=== PATIENT | female | born 1955 | race Caucasian/White ===

== ENCOUNTER → 2020-06-24 10:53 | Outpatient (CLI) | payer MEDICARE, SELFPAY ==
[2020-06-25 10:46] LABS: COVID19 Sendout Not Detected (Not Detect)
== END ==
PROVIDERS: Visit Provider Physician Assistant
DX: Z11.59 Encounter for screening for other viral diseases (principal)
CPT/HCPCS: 87635

== ENCOUNTER 2020-06-27 08:21 | Day surgery (SDC) | payer MEDICARE, SELFPAY ==
[2020-06-20 09:49] VITALS: BMI 25.7
[2020-06-27] VITALS (13 sets, daily range): BP systolic 85–123; BP diastolic 45–74; PULSE 66–99; RESP 14–20; TEMP 35.8–36.9; O2SAT 97–100; BMI 25.7
--- NOTE | 2020-06-27 | DI.RAD.S_ITS ---
PROCEDURE: XR HIP W PEL IF DONE RT 2V INDICATIONS: ANTERIOR RIGHT HIP TECHNIQUE: 3 intraoperative fluoroscopic images of the hip acquired. COMPARISON: [facility], CR, XR PELVIS 1-2V, 06/27/2020, 13:51. FINDINGS: Bones: Patient is status post right total hip arthroplasty, with hardware components in expected positions. The hip joint appears congruent. The visualized bony structures appear intact. Soft tissues: No suspicious soft tissue densities. IMPRESSION: Postsurgical changes from right total hip arthroplasty. Dictated by: Gordon Fajardo M.D. on 06/27/2020 at 14:53 Approved by: Gordon Fajardo M.D. on 06/27/2020 at 14:57
--- NOTE | 2020-06-27 06:00 | DI.RAD.S_ITS ---
PROCEDURE: XR PELVIS 1-2V INDICATIONS: TOTAL RIGHT HIP TECHNIQUE: 1 view of the lower pelvis acquired. COMPARISON: None. FINDINGS: Bones: Patient is status post new right hip arthroplasty, with hardware components in expected positions. The hip joint appears congruent. The visualized bony structures appear intact. Soft tissues: Overlying postoperative changes are noted. No suspicious soft tissue densities. IMPRESSION: Prior left total hip arthroplasty, new right total hip arthroplasty. Normal alignment established. Dictated by: Dong Banda M.D. on 06/27/2020 at 15:22 Approved by: Dong Banda M.D. on 06/27/2020 at 15:23
[2020-06-27] MEDS: ACETAMINOPHEN 325 MG TABLET 975 MG PO (09:04)
[2020-06-27] MEDS: CELECOXIB 200 MG CAPSULE PO (09:04)
--- NOTE | 2020-06-27 10:41 | PM.PREOP ---
Pre-operative Note COVID-19 COVID-19 status: Negative Result date/Date tested (Pos, Neg/Pending): 06/24/20 Interval Note History & Physical reviewed/Exam performed by Physician: No Changes to H&P: Yes H&P completed within 30 days and has changed as indicated here:: Plan for right anterior total hip arthroplasty. All
--- NOTE | 2020-06-27 10:46 | PC.NURSE ---
Day shift: Pt not on AC unit at this time.
[2020-06-27] MEDS: CEFAZOLIN 2 GM/100 ML FROZ.PIGGY IV ×2 (11:12→19:49)
[2020-06-27] MEDS: TRANEXAMIC ACID 1,000 MG VIAL 1000 MG INJ ×2 (11:41→13:21)
--- NOTE | 2020-06-27 12:01 | SUR.OPER ---
Supine on padded [place] table with bilateral legs secured in padded positioning boots and suspended in positioning spars, operative leg in traction per surgeon. Head on one pillow. Arm on non-operative side secured on padded armboard <90 degrees abduction. Arm on operative side padded and resting across chest then secured with tape over sheet. Padded perineal post in place per surgeon.
[2020-06-27] MEDS: ROPIVACAINE 0.5% PF 5 MG/ML 20ML VIAL 60 ML INJ (12:10)
[2020-06-27] MEDS: KETOROLAC 30 MG/ML VIAL IV (12:11)
[2020-06-27] MEDS: MORPHINE 4 MG/ML INJ INJ (12:11)
[2020-06-27] MEDS: LACTATED RINGERS 1,000 ML 42 ML IV (13:20)
--- NOTE | 2020-06-27 13:33 | PM.OP.1 ---
Operative Date/Time/Diagnoses Date of procedure: 06/27/20 Time of procedure: 13:33 Pre-op diagnosis: right hip osteoarthritis Post-op diagnosis: same Procedure & Clinicians Procedure: right anterior total hip arthroplasty Same procedure as scheduled: Yes Indications: right hip OA resistant to conservative measures Surgeon: Kishore Daly Director Of Community Life: Zaki Moreno Anesthesia Type: General and Spinal Operative Notes Findings: right hip osteoarthritis with large acetabular rim osteophytes superiorly and postero-inferiorly Closure Type: primary Specimen(s): none sent Prosthetic devices, grafts, tissues, transplants, or devices: Hernandez and Nephew 56 mm R3 cup 56 mm x 36 mm neutral polyethylene liner 1x 25mm screw 1x 20mm screw Hernandez and Nephew anthology size 9 high offset stem Bio locks 36+ 0 ceramic head Estimated Blood Loss (mL): 200 Procedure in detail: Patient was met in the preoperative holding area where the site and side of surgery were marked by MD all last minute questions were answered. Patient was then brought back in the operating room she received a spinal anesthetic she was then transferred onto the [place] table and induced under general anesthesia. Bilateral feet were placed in [place] table boots. The right hip was then prepped and draped in normal sterile fashion. A surgical time-out was performed verifying side and site of surgery as well as the name of the patient. A 7 cm long incision was made starting approximately 2 cm distal and 1 cm lateral to the ASIS aiming towards the fibular head. Skin incision was made using 10. Blade electrocautery was used down to subcutaneous layer to the level of the tensor fascia. A new 10. Blade was used to incise the tensor fascia. A Allis clamp was placed on the medial leaflet of the tensor fascia and the tensor muscle was retracted laterally. A Meyerding was then placed over the lateral margin of the rectus femoris and retracted medially. This gave us good exposure to the femoral circumflex vessels which were coagulated using electrocautery. Then placed a Cobra over the superior neck of the femur and a 2nd Cobra retractor over the inferior neck of the femur. I then placed a bent Hohmann over the anterior wall the acetabulum giving us good exposure to the capsule. A inverted T-shaped capsulotomy was performed and the superior and inferior leaflets were tagged with a FiberWire suture. Cobra retractor was then placed intracapsular. This gave us good exposure for femoral neck reciprocating saw was used to make the femoral neck cut based off our pre operative templated films. They show the femur was then externally rotated to 45? and a corkscrew was then used to remove the femoral head. A soft tissue sleeve protector was then placed into the wound and Hohmann retractors were placed over the posterior wall of the acetabulum as well as anterior wall giving us good exposure to the acetabulum and the colloid fossa. Electrocautery was used to remove the pulvinar from the colloid fossa I began reaming with a size 48 mm Reamer. Reamed down to the floor the colloid fossa and then began up sizing by 2s to a size 54 mm Reamer. Periodically stopped and checked the anterior and posterior wall make sure 1 was not being preferentially reamed over the other. At this point fluoroscopy was brought in and was matched to our preoperative standing film for final reaming of the size 55 mm Reamer this had good resistance and 56 mm 3 hole cup was selected. This was placed under fluoroscopic guidance. Two screws were then placed 25 mm screw a 20 mm screw the acetabular cup was then irrigated and a 56 mm x 36 mm neutral polyethylene liner was selected and placed. This is malleted into place and the patient was used to confirmed the tabs were flush with the acetabular rim. A large superior rim osteophyte and a large posterior inferior rim osteophyte were identified and removed with a curved osteotome and rongeur. Femoral elevator hook was then placed underneath the femur the femur was externally rotated to 110? extended to the floor and adducted. The bent Hohmann was placed over the superior aspect of the superior leaflet of the capsulotomy and the capsule was released from the inside shoulder of the greater trochanter giving us exposure to the short external rotators. Short external rotators were teased off the lower lateral margin just enough to give us good exposure the proximal femur. Once this was completed a canal finer was used as find center of the femoral canal followed by a chili pepper broach followed by size 1 broach. We then skipped a sized to size 3 broach and this could sized to size 5 broach and then began up sizing by once again to a 6, 7, 8. I then calcar reamed off the size 8 broach a standard offset trial neck was selected at 36+ 0 head was also selected this was then reduced and fluoroscopy was brought in for leg length leg length looked 1-2 mm long and in addition the stem was in a slight amount of varus and slightly undersized. The offset was also reduced as compared to the contralateral side. The trial components were then removed. I began broaching with a 678 and finally to a 9 broach countersinking by about 1-2 mm. I then calcar reamed off the size 9 broach and selected a size 9 high offset stem. This was malleted into place and a size 36+ 0 by locks head was selected and placed onto the taper and malleted into place. Hip was reduced a final time and brought through range of motion and found to be stable. Final x-rays were then obtained. Local anesthetic was injected into the soft tissues about the hip particularly in the superior and inferior leaflets of the capsule and the tensor. Betadine solution was then allowed to soak into the wound for several minutes this was then thoroughly irrigated with copious normal saline. Ethibond suture was used to close the capsulotomy and the FiberWire sutures were removed. A 1. Vicryl was then used in running locking fashion for the tensor fascia followed by a 1. Vicryl in the fat layer followed by 2 Vicryl in the subcutaneous layer in interrupted fashion followed by a 3 0 strata fix in the subcuticular layer. Dermabond was then placed allowed to dry before placing Aquacel dressing. Complications: none Post-operative Condition: stable Disposition: PACU Plan for aftercare: 24 hoiurs post-op abx, 6 weeks ASA 81 mg BID for DVT prophylaxis, WBAT RLE
--- NOTE | 2020-06-27 14:27 | SUR.PHASEI ---
To room 217 by another RN and [facility] [employer]. Report previously given. Pt doing well, pleasant, appreciative, and relieved to feel so good. Dressing remains CDI, warm blanket given for comfort.
[2020-06-27] MEDS: LACTATED RINGERS 1,000 ML 125 ML IV (15:21)
[2020-06-27] MEDS: ACETAMINOPHEN 325 MG TABLET 650 MG PO ×2 (15:46→20:00)
--- NOTE | 2020-06-27 16:09 | PT-IP ANOTE ---
Pt just arrived to the floor an hour ago. PT checked for evaluation but pt was not yet able to feel or move her feet. Will follow up for PT eval morning of 06/28/20.
[2020-06-27] MEDS: DOCUSATE 100 MG CAPSULE PO (20:00)
[2020-06-27] MEDS: ASPIRIN EC 81 MG TABLET PO (20:00)
[2020-06-27 20:17] LABS: Add Manual Diff / Slide Review NO; Basophils Absolute Auto 0 /uL (0-100); Basophils Percent Auto 0.3 % (0-2); Eosinophils Absolute Auto 0 /uL (0-450); Hematocrit 36.1 % (36-46); Hemoglobin 11.5 g/dL (12.0-16.0); Lymphocytes Absolute Auto 700 /uL (1100-4500); Lymphocytes Percent Auto 5.4 % (25-40); Mean Corpuscular HGB Conc 31.9 % (30-36); Mean Corpuscular Hemoglobin 29.9 PG (26-34); Mean Corpuscular Volume 93.7 fL (80-100); Monocytes Absolute Auto 900 /uL (0-900); Monocytes Percent Auto 6.6 % (3-14); Neutrophils Absolute Auto 12100 /uL (1500-7000); Neutrophils Percent Auto 87.7 % (50-75); Platelet Count 215 X10^3/uL (150-400); Red Blood Cell Count 3.85 X10^6/uL (4.0-5.2); Red Cell Distribution Width 13.8 % (11.6-14.8); White Blood Cell Count 13.7 X10^3/uL (4.5-11.0)
[2020-06-27] MEDS: OXYCODONE IR 5 MG TABLET PO (22:55)
[2020-06-28] VITALS: BP 93/55; PULSE 63; RESP 18; TEMP 36.4; O2SAT 95
[2020-06-28] MEDS: LACTATED RINGERS 1,000 ML 125 ML IV (00:05)
[2020-06-28] MEDS: CEFAZOLIN 2 GM/100 ML FROZ.PIGGY IV (02:32)
[2020-06-28] MEDS: OXYCODONE IR 5 MG TABLET PO ×4 (02:34→13:17)
[2020-06-28 03:15] VITALS: BP 107/56; PULSE 65; RESP 18; TEMP 36.5; O2SAT 100
[2020-06-28] MEDS: LEVOTHYROXINE 50 MCG TABLET PO (05:31)
[2020-06-28 05:38] LABS: Hematocrit 31.4 % (36-46); Hemoglobin 10.1 g/dL (12.0-16.0)
[2020-06-28 07:25] VITALS: BP 163/83; PULSE 67; RESP 16; TEMP 37.2; O2SAT 98
[2020-06-28 07:56] VITALS: PULSE 62; RESP 16; O2SAT 100
--- NOTE | 2020-06-28 07:57 | PM.DS.1 ---
History of Present Illness History of Present Illness Date Patient Seen: 06/28/20 Time Patient Seen: 07:57 Chief complaint: Right Total Hip Arthroplasty/Anterior Approach*OPB Narrative: Admitted yesterday for elective right anterior AYLEEN Discharge Providers Provider Discharge Date: 06/28/20 Primary care physician: Enriqueta Reyes MD Consults: 06/27/20 06:00 Consult to Anesthesiology Routine Comment: Consulting Provider: Anesthesiologist Reason for consultation: Regional block for post operative pain control 06/27/20 14:36 Consult to Discharge Planning Routine Comment: Consult to Physical Therapy Evaluate & Treat Comment: Physician Instructions: post op AYLEEN protocol Consult to Respiratory Therapy Evaluate & Treat Comment: Physician Instructions: Evaluate and treat Discharge provider: Kishore Daly MD Summary Hospital Course Discharge Diagnosis: s/p right anterior AYLEEN Hospital Course: Patient was admitted yesterday for elective right anterior AYLEEN for osteoarthritis. She was kept overnight for 24 hrs post-op abx, pain control, and PT clearance. Status at Discharge Cognitive/behavioral status at discharge: oriented Overall status at discharge: patient is progressing back to baseline Time Spent with Patient Time spent: Less than 30 minutes Exam Vital Signs (past 8 hours): - 06/28/20 00:00 06/28/20 03:15 Temperature 97.6 F 97.7 F Pulse Rate 63 65 Respiratory Rate 18 18 Blood Pressure 93/55 L 107/56 L Pulse Oximetry 95 100 Oxygen Delivery Method Room Air Oxygen Flow Rate 0 Narrative Exam Narrative: NVintact in RLE, dressing c/d/i without strike-through Objective Labs Result Diagrams: 06/28/20 05:25 Labs: Laboratory Results - last 24 hr 06/27/20 06/28/20 20:05 05:25 WBC 13.7 H RBC 3.85 L Hgb 11.5 L 10.1 L Hct 36.1 31.4 L MCV 93.7 MCH 29.9 MCHC 31.9 RDW 13.8 Plt Count 215 Neut % (Auto) 87.7 H Lymph % (Auto) 5.4 L Toombs % (Auto) 6.6 Eos % (Auto) 0.0 L Baso % (Auto) 0.3 Neut # (Auto) 57981 H Lymph # (Auto) 700 L [place]ombs # (Auto) 900 Eos # (Auto) 0 Baso # (Auto) 0 Discharge Assessment & Plan Assessment and Plan Assessment: PAtient is a 64 yo female now POD#1 from elective right anteiror AYLEEN. Anticipate DC home today after clearance by PT Plan of Treatment: - WBAT RLE - ASA 81mg BID for 6 weeks for DVT prophylaxis - Leave dressing in place - post-op exxam 10-14 days Discharge Plan Discharge Plan Patient Disposition: Home Discharge comment: DC when pain controlled and cleared by PT Discharge Med Rec/Prescriptions Prescriptions: New aspirin 81 mg Tablet,Delayed Release (Dr/Ec) 81 mg PO BID Qty: 84 RF: 0 oxycodone 5 mg Tablet 5 mg PO Q3HR PRN (Reason: Pain, Moderate (4-6)) Qty: 60 RF: 0 Continued levothyroxine 50 mcg Tablet 50 mcg PO DAILY RF: 0 magnesium oxide 250 mg magnesium Tablet 250 mg PO DAILY RF: 0 Follow up/Referrals: Kishore Daly MD [Physician] - Discharge Orders: Discharge (Order); Ordered 06/28/20 Ordered By: Kishore Daly Provider Discharge Instructions Diet: Regular Activity: WBAT RLE. OK to shower over the dressing. Do not bathe or soak. Cold/Heat Therapy: ICE surgical site as needed for swelling relief and pain control. Place a towel between skin and ice to prevent garza. Skin/Wound/Dressing Care Dressing: Leave the dressing in place. Visit Report/Discharge Packet Instructions: DI for Hip Replacement Discharge Data Primary Care Provider: Enriqueta Reyes Attending Provider: Kishore Daly
--- NOTE | 2020-06-28 09:20 | PT.IIE ---
Current Diagnoses Unilateral primary osteoarthritis, right hip (06/27/20) Surgery Performed Operation Date: 06/27/20 10:45 Actual Procedures p Total Hip Arthroplasty/Anterior Approach(Right) - Kishore Daly MD Surgical History (Last Updated 06/20/20 @ 10:28 by Melissa Tafoya RN) History of total left hip arthroplasty (Acute 12/2010) Hx of cholecystectomy (Acute 2007) Hx of hernia repair (Acute) Hx of tonsillectomy (Acute 1964) Medical History (Last Updated 06/20/20 @ 10:32 by Melissa Tafoya RN) Anxiety (Acute) Asthma (Acute) Eczema (Acute) Elevated cholesterol (Acute) H. 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) Osteoarthritis (Acute) PTSD (post-traumatic stress disorder) (Acute) SVT (supraventricular tachycardia) (Acute ~2008) Physical Therapy Inpatient Evaluation/Re-Eval M1 PT/OT-IP Prior Functional Status Start: 06/28/20 11:12 Freq: NEEDED Status: Active Protocol: Document 06/28/20 09:20 AB (Rec: 06/28/20 11:22 [email or web address]) Medical Review Prior Functional Status Medical History Reviewed Yes Communication able to make needs known Mobility and Gait pt stated that she is independent with all mobilities and ambulation without AD Social History Household Members none Living Arrangements Apartment/Condo Number of Floors (Floors) One Floor Number of Stairs To Enter/Railing? 2 platform steps to enter Home Environment Standard Height Toilet,Tub/ Shower Home Equipment Front Wheel Walker,Raised Toilet Seat w/Armrests,Shower Seat with Backrest,Hand Held Shower Employment Status Retired Additional Social History Comment pt stated that she has friends that will stay and assist her at home for ~ 1 week and is set up for HHPT since she cannot drive. M2 PT-IP Current Condition Start: 06/28/20 11:12 Freq: NEEDED Status: Active Protocol: Document 06/28/20 09:20 AB (Rec: 06/28/20 11:22 [email or web address]) Physical Therapy Current Condition Current Condition Evaluation Date 06/28/20 Treatment Diagnosis s/p R AYLEEN anterior approach; difficulty in walking Onset Date 06/27/20 Precautions Anterior Hip Precautions No Hip Extension,No Hip External Rotation Weight Bearing Status Weight Bearing Status Weight Bear as Tolerated Allowed Weight Bearing Amount (enter % RLE WBAT or #) (%) M3 PT-IP Subjective Start: 06/28/20 11:12 Freq: NEEDED Status: Active Protocol: Document 06/28/20 09:20 AB (Rec: 06/28/20 11:22 [email or web address]) Subjective Physical Therapy Visit Type Type Initial Evaluation Visit Start Time 09:20 Visit Stop Time 10:03 Total Visit Minutes 43 Number of CLOTH SECONDS SORTER Visits 0 Physical Therapy Visit Comments Patient Comments pt is agreeble to do PT Therapy Pain Assessment Pain When Pain Assessed At Rest Pain Present Pain Present Pain Reported Location Left Hip Intensity 1 Scale Used increases to 3/10 with mobility Description Dull Pain Management Techniques Distraction,Modification of Treatment,Re-positioning, Timing of Activity with Medications M4 PT-IP Mobility and Gait Start: 06/28/20 11:12 Freq: NEEDED Status: Active Protocol: Document 06/28/20 09:20 AB (Rec: 06/28/20 11:22 [email or web address]) PT-Bed Mobility Assessment Supine to Sit Supine to Sit Standby Assistance Sit to Supine Sit to Supine Standby Assistance Scooting Scooting to Edge of Bed Standby Assistance PT-Transfer Assessment Sit to and From Stand Sit to and from Stand Standby Assistance,Use of Upper Extremities Equipment Transfer Assistive Device Gait Belt,Front Wheeled Walker Orthotic/Prosthetic Devices or Brace: No Transfers Transfer Destination Bed,Chair Transfer Technique Stand Step Pivot Transfer Ability Level of Assist Standby Assistance Comments Mobility Comments educated on anterior hip precautions. pt completed sit to stand from chair SBA. educated on sit to stand techniques and repeated sit to stand x 2 reps SBA with steadier transition. completed step transfer to bed using FWW SBA and completed bed mobility SBA. pt ambulated to the toilet using FWW SBA and completed toileting without AD. able to maintain standing by the sink SBA while completing handwashing. completed ambulated towards the stairs SBA using FWW with occasional cues for hip precautions. completed up/ down platform step using FWW SBA. pt ambulated back to her room. requested to go back to bed. positioned in bed. call light and table placed within reach. Gait Assessment Gait Gait Assistance Required: Standby Assistance Distance (Feet) 250 Able to Maintain Weight Bearing Status Yes During Gait Assistive Devices Assistive Device Gait Belt,Front Wheeled Walker Orthotic/Prosthetic Devices or Brace: No Gait Deviations General Gait Pattern Antalgic Factors Limiting Gait Function Factors Limiting Gait Function Decreased Activity Tolerance, Decreased Strength,Pain,Poor Balance Stair Climbing Assessment Evaluation Level of Assist On Stairs Standby Assistance Devices Stair Climbing Assistive Devices Front Wheel Walker Technique/Endurance Stair Climbing Direction Ascend and Descend Stair Climbing Technique Step to Step Number of Steps Climbed 1 Query Text: Stair Climbing Set # Repetitions (reps) 2 PT-Balance Assessment Sitting Balance and Reactions Static Sitting Balance Ability Normal Dynamic Sitting Balance Ability Normal Standing Balance and Reactions Static Standing Balance Ability Good Dynamic Standing Balance Ability Fair Device Used FWW M5 PT-IP Objective Assessments Start: 06/28/20 11:12 Freq: NEEDED Status: Active Protocol: Document 06/28/20 09:20 AB (Rec: 06/28/20 11:22 [email or web address]) Orientation Orientation/Cognition Level of Alertness Alert Orientation Name,Age,Birthday,Month,Date, Year,Day of Week,Place, Situation Language Function Ability No Deficits Noted Safety Awareness Understands Safety Issues Memory Description No Deficits Noted Gross Range of Motion Lower Extremity ROM Assessment Within Functional Limits Strength Lower Extremity Strength Assessment Within Functional Limits Coordination Assessment Gross Coordination Gross Coordination WNL Sensation Assessment Sensation Gross Sensation WNL Muscle Tone Muscle Tone WNL Yes M6 PT-IP Treatment Start: 06/28/20 11:12 Freq: NEEDED Status: Active Protocol: Document 06/28/20 09:20 AB (Rec: 06/28/20 11:22 [email or web address]) Physical Therapy Treatment Education Education Provided Precautions,Weight Bearing Status,Post-Op Packet,Safety M7 PT-IP Assessment and Plan Start: 06/28/20 11:12 Freq: NEEDED Status: Active Protocol: Document 06/28/20 09:20 AB (Rec: 06/28/20 11:22 [email or web address]) PT Summary Assessment and Plan Potential Rehabilitation Potential Excellent Status of Condition at Evaluation Stable Summary Impairments Pain,ROM,Strength,Balance, Cognition,Bed Mobility, Transfers,Gait,Activity Tolerance Assessment Summary pt requiring SBA with mobility and plans to go home today and will have her friends to assist her. pt may go home when medically stable. Goals Bed Mobility Goal Independent Transfer Goal Independent,Front Wheeled Walker Gait Goal Independent,Front Wheel Walker Gait Distance 300 Other Goals up/down 2 platform steps mod I using FWW Days to Meet Goals 3 Frequency of Treatment Frequency Of Treatment Twice a Day Treatment Plan Physical Therapy Treatment Plan Bed Mobility Training,Transfer Training,Gait Training, Therapeutic Exercise,Balance Retraining,Post Op Education, Discharge Planning,Hot or Cold Pack,Neuromuscular Re-ed, Coordination Retraining,Manual Therapy Recommendations To Nursing Amount of Assist Needed Standby Assistance Discharge Recommendations PT Discharge Recommendations Home with Assistance,Home Health,LTAC Transportation Needs at Discharge Private Vehicle
[2020-06-28] MEDS: MAGNESIUM OXIDE 400 MG TABLET 200 MG PO (09:29)
[2020-06-28] MEDS: DOCUSATE 100 MG CAPSULE PO (09:30)
[2020-06-28] MEDS: SODIUM CHLORIDE 0.9% FLUSH 10 ML IV (09:30)
[2020-06-28] MEDS: ASPIRIN EC 81 MG TABLET PO (09:30)
[2020-06-28] MEDS: ACETAMINOPHEN 325 MG TABLET 650 MG PO (09:30)
--- NOTE | 2020-06-28 12:26 | CM.DANOTE ---
Discharge Planning/Care Management CM Discharge Assessment Start: 06/28/20 12:24 Freq: Status: Active Protocol: Document 06/28/20 12:25 ITV (Rec: 06/28/20 12:26 ITV [id number]) Discharge Planning Assessment Advance Directives? Yes Advance Directives on File No History Provided By Medical Record Prior Living Arrangements Apartment/Condo Household Members none Is patient alert and oriented? 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 Pt has a service dog that she will be away from and this is causing her increased anxiety, tearfulness . Patient Information Reviewed Via Phone Assessment Assessment Completed With Patient Comment COVID screen @ 06/24/20 Primary Care Provider Enriqueta Reyes Seen Specialist in Last 12 Months Yes Specialist Seen Orthopedist Primary Language Armenian Loading Unit Operator Crimping Required No Height 172.72 cm Weight 76.657 kg Body Mass Index (BMI) 25.7 Hearing Ability Normal Visual Assist Glasses Dentition Type Teeth, Natural Present,Teeth, Missing Barriers to Learning Emotional Hx Anesthesia Reactions No Hx Family Anesthesia Reaction No Hx Malignant Hyperthermia No Hx Blood Transfusions No Anesthesia Review Requested No alcohol intake former Alcohol Intake Frequency Other: Sober 31 years Smoking Status Former smoker how long ago did patient quit smoking Social light smoker in her 20' s Substance Use Type marijuana Comment Pt advised not to smoke marijuana 24 hours prior to surgery Pain Present Pain Reported Musculoskeletal Symptoms Abnormal Gait,Back Pain, Difficulty Walking,Joint Pain Patient is completely paralyzed or No completely immobile Mental Status Oriented to own ability Is patient on oxygen? No Does patient have YEE/SOB No Hx Sleep Apnea No Currently Taking a Beta Shay No Can You Climb a Flight of Stairs Without Yes SOB Hx Chest Pain No Hx SOB No Hx Syncope or Dizziness No Anti-Coagulant Therapy No Has a Dividend Deposit Voucher Clerk No Cardiac Testing No Hx Pacemaker/ICD No Pacemaker Rep Required? No Cardiac Clearance Received Not Applicable Diet Type At Home Regular dysphagia No Gastrointestinal Symptoms Constipation Bladder Pattern Frequency,Nocturia Urinary Catheter Present No Hx Urinary Self Catheterization No Diabetes No Patient No Lactating No Hx Drug Resistant Organism Yes: H.Pylori Presence of External or Internal Medical Yes: Left hip prosthesis Devices Have you had any close contact with No someone diagnosed with COVID-19? Marital Status Single Lives With none Prior Living Arrangements Apartment/Condo Number of Floors (Floors) One Floor Support System Friend(s) Does the Patient Have Assistance After Yes: Friends will stay, assist Surgery with care at [place] Patient Discharge Plan Description Return Home Comment Pt advised one night length of stay per surgeon Feels Safe in Current Environment Yes Been Physically Hurt or Threatened By a No Person in Current Environment Do you have thoughts of harming yourself None or others? Are you currently considering suicide? No Do you have a plan to hurt yourself or No Plan others? Do You Have Any Spiritual Beliefs That No May Affect Your HC Choices? Do You Have Any Cultural Practices That No May Affect Your HC Choices? Who Can We Speak to About Patient's Care Family, friends Identifying Code for Release of Patient Declines to issue Information Health Care Proxy/Next of Kin Chely Whitehead (friend) Health Care Proxy Emergency Contact Name Court Welch (friend) Emergency Contact Advance Directives? Yes: Currently working [employer] Requested Patient Bring Advanced Yes Directives DOS Power of Title Curator No PAC Instructions Do not shave/clip surgical site,Durable medical equipment ,Medications to take/avoid, Nasal antibiotic,No ETOH/ petroleum product on skin DOS, NPO,Pre-surgical wash,Sturdy shoes/comfortable clothes,Do not bring valuables and remove jewelry
--- NOTE | 2020-06-28 12:28 | CM.DANOTE ---
Addendum entered by Katharine Cross LPN 06/28/20 12:39: Met with pt as planned. Introduced self and role. Had observed pt earlier today ambulating in halls with PT Karina. Pt confirms she is doing well and will be going home as soon as she finishes lunch. She has a friend who is picking her up and will stay with her tonight. Another friend is arriving tomorrow with her motor home and will be staying for extended period of time to provide supportive assist. Pt states she has been planning this for some time. She has lots of food put up and is feeling very positive re her plan for home today. Original Note: Discharge Planning/Care Management: DCP: assessment: case received, EMR reviewed. Discussed in Team Rounds. An senior reactor operator d/c order was placed but PT reported in Rounds that the first eval would be today. PT Karina has now worked with pt and her notes indicate pt is cleared for d/c to home setting with help of supportive friends. Pt is a 64 year old female who admitted yesterday for a planned R AYLEEN/anterior/ Payer: [employer] Medicare PCP: Enriqueta Reyes. Pt's psychiatric history as per pre-op SAMMIE Tafoya is noted. Will check in with her now. CM Discharge Assessment Start: 06/28/20 12:24 Freq: Status: Active Protocol: Document 06/28/20 12:25 ITV (Rec: 06/28/20 12:26 ITV [id number]) Discharge Planning Assessment Advance Directives? Yes Advance Directives on File No History Provided By Medical Record Prior Living Arrangements Apartment/Condo Household Members none Is patient alert and oriented? 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 Pt has a service dog that she will be away from and this is causing her increased anxiety, tearfulness . Patient Information Reviewed Via Phone Assessment Assessment Completed With Patient Comment COVID screen @ 06/24/20 Primary Care Provider Enriqueta Reyes Seen Specialist in Last 12 Months Yes Specialist Seen Orthopedist Primary Language Uzbek Team Psychologist Required No Height 172.72 cm Weight 76.657 kg Body Mass Index (BMI) 25.7 Hearing Ability Normal Visual Assist Glasses Dentition Type Teeth, Natural Present,Teeth, Missing Barriers to Learning Emotional Hx Anesthesia Reactions No Hx Family Anesthesia Reaction No Hx Malignant Hyperthermia No Hx Blood Transfusions No Anesthesia Review Requested No alcohol intake former Alcohol Intake Frequency Other: Sober 31 years Smoking Status Former smoker how long ago did patient quit smoking Social light smoker in her 20' s Substance Use Type marijuana Comment Pt advised not to smoke marijuana 24 hours prior to surgery Pain Present Pain Reported Musculoskeletal Symptoms Abnormal Gait,Back Pain, Difficulty Walking,Joint Pain Patient is completely paralyzed or No completely immobile Mental Status Oriented to own ability Is patient on oxygen? No Does patient have YEE/SOB No Hx Sleep Apnea No Currently Taking a Beta Shay No Can You Climb a Flight of Stairs Without Yes SOB Hx Chest Pain No Hx SOB No Hx Syncope or Dizziness No Anti-Coagulant Therapy No Has a Servomechanism Assembler No Cardiac Testing No Hx Pacemaker/ICD No Pacemaker Rep Required? No Cardiac Clearance Received Not Applicable Diet Type At Home Regular dysphagia No Gastrointestinal Symptoms Constipation Bladder Pattern Frequency,Nocturia Urinary Catheter Present No Hx Urinary Self Catheterization No Diabetes No Patient No Lactating No Hx Drug Resistant Organism Yes: H.Pylori Presence of External or Internal Medical Yes: Left hip prosthesis Devices Have you had any close contact with No someone diagnosed with COVID-19? Marital Status Single Lives With none Prior Living Arrangements Apartment/Condo Number of Floors (Floors) One Floor Support System Friend(s) Does the Patient Have Assistance After Yes: Friends will stay, assist Surgery with care at [place] Patient Discharge Plan Description Return Home Comment Pt advised one night length of stay per surgeon Feels Safe in Current Environment Yes Been Physically Hurt or Threatened By a No Person in Current Environment Do you have thoughts of harming yourself None or others? Are you currently considering suicide? No Do you have a plan to hurt yourself or No Plan others? Do You Have Any Spiritual Beliefs That No May Affect Your HC Choices? Do You Have Any Cultural Practices That No May Affect Your HC Choices? Who Can We Speak to About Patient's Care Family, friends Identifying Code for Release of Patient Declines to issue Information Health Care Proxy/Next of Kin Chely Whitehead (friend) Health Care Proxy Emergency Contact Name Court Welch (friend) Emergency Contact Advance Directives? Yes: Currently working [employer] Requested Patient Bring Advanced Yes Directives DOS Power of Transportation Engineering Technician No PAC Instructions Do not shave/clip surgical site,Durable medical equipment ,Medications to take/avoid, Nasal antibiotic,No ETOH/ petroleum product on skin DOS, NPO,Pre-surgical wash,Sturdy shoes/comfortable clothes,Do not bring valuables and remove jewelry
--- NOTE | 2020-06-28 13:35 | PC.NURSE ---
Discharge home: IV dc'd intact. Reviewed all d/c instructions thoroughly with patient including s/sx with which to call MD, hip precautions, and medication schedule. Dressing to stay on until f/u, instructed no bath/tub/swim until cleared by MD. She already has her first follow up appt scheduled. Patient verbalized understanding of d/c info and stated her questions had been adequately addressed. Informed how to get ahold of the answering service should any concerns arise after clinic hours. Medicated with 5 mg Oxycodone prior to leaving, and sent with fresh ice pack as well. All personal belongings sent with patient at d/c. Wheeled out to private vehicle accompanied by nursing staff.
== END 2020-06-28 13:41 | disposition home or self-care (01) ==
LOC: OR 08:28 → AC 08:31
PROVIDERS: PCP Internal Medicine; Referring Provider Internal Medicine; Visit Provider Orthopaedic Surgery Adult Reconstructive Orthopaedic Surgery
PROC: (CPT 27130; principal; 2020-06-27 10:45)
DX: M16.11 Unilateral primary osteoarthritis, right hip (principal); E03.9 Hypothyroidism, unspecified; Z96.642 Presence of left artificial hip joint
CPT/HCPCS: 27130; 36415; 72170; 73502; 76000; 85014; 85018; 85025; 94762; 97161; 97530; C1776; J0690; J1100; J1885; J2250; J2270; J2274; J2405; J2704; J3010

== ENCOUNTER → 2020-09-09 11:49 | Outpatient (CLI) | payer MEDICARE, SELFPAY ==
[2020-06-27 14:46] VITALS: BMI 25.7
[2020-09-09 12:06] LABS: Add Manual Diff / Slide Review NO; Basophils Absolute Auto 100 /uL (0-100); Basophils Percent Auto 1.1 % (0-2); Eosinophils Absolute Auto 500 /uL (0-450); Eosinophils Percent Auto 6.5 % (2-4); Hematocrit 43.2 % (36-46); Hemoglobin 14.2 g/dL (12.0-16.0); Lymphocytes Absolute Auto 3300 /uL (1100-4500); Lymphocytes Percent Auto 41.5 % (25-40); Mean Corpuscular Hemoglobin 29.6 PG (26-34); Mean Corpuscular Volume 89.7 fL (80-100); Monocytes Absolute Auto 900 /uL (0-900); Monocytes Percent Auto 11.8 % (3-14); Neutrophils Absolute Auto 3100 /uL (1500-7000); Neutrophils Percent Auto 39.1 % (50-75); Platelet Count 255 X10^3/uL (150-400); Red Blood Cell Count 4.82 X10^6/uL (4.0-5.2); Red Cell Distribution Width 14.6 % (11.6-14.8)
[2020-09-09 12:25] LABS: C-Reactive Protein Quant < 0.5 mg/dL (<1.0)
[2020-09-09 12:28] LABS: Erythrocyte Sedimentation Rate 7 MM/HR (0-20)
== END ==
PROVIDERS: PCP Internal Medicine; Referring Provider Orthopaedic Surgery Adult Reconstructive Orthopaedic Surgery; Visit Provider Orthopaedic Surgery Adult Reconstructive Orthopaedic Surgery
DX: Z96.641 Presence of right artificial hip joint (principal)
CPT/HCPCS: 36415; 85025; 85651; 86140